=== PATIENT | female | born 1950 | race Caucasian/White ===

== ENCOUNTER 2019-02-16 04:53 | Inpatient (IN) ==
--- NOTE | 2019-01-14 08:49 | PAT Medication Instructions ---
Medication Instructions Date of Service January 14, 2019 Home Medications aspirin [Aspirin Low Dose] 81 mg PO QDD calcium carbonate-vitamin D3 [Calcium 600 + D(3)] 1 cap PO QDD cholecalciferol (vitamin D3) [Vitamin D3] 1,000 unit PO QAM hydrochlorothiazide 25 mg PO QAM potassium chloride 10 meq PO QAM vitamin B complex 1 tab PO QAM ASK your prescriber and surgeon aspirin [Aspirin Low Dose] 81 mg PO QDD DO NOT take the morning of surgery cholecalciferol (vitamin D3) [Vitamin D3] 1,000 unit PO QAM hydrochlorothiazide 25 mg PO QAM potassium chloride 10 meq PO QAM vitamin B complex 1 tab PO QAM Take evening before surgery calcium carbonate-vitamin D3 [Calcium 600 + D(3)] 1 cap PO QDD Other Notes If you have any questions please call us at [phone] or [phone] or [phone] or [phone]
--- NOTE | 2019-01-14 11:32 | Anesthesiology Consultation ---
Date of Service January 14, 2019 Assessment & Plan (1) Encounter for pre-operative examination: - PCP: 01/21/19: "Patient appears in good health with no contraindications to surgery. I am still waiting for the results of her pre-operative testing from [facility]. Pending these results, she appears optimized for her upcoming procedure." Preop testing received/reviewed by PCP. In regards to hypokalemia on preop testing, patient already on KCl 10meq daily- patient admits she does not take it every day. Compliance recommended and repeat BMP recommended prior to surgery (plan to be done week of 01/31 at [facility]). - ASA: okay to continue perioperatively per surgeon Chart Review Chart Review: Acceptable Risk for Surgery (pending repeat BMP) and Patient seen in Pre Admission Testing Teaching & Discussion Pre-Anesthesia Teaching/Discussion Notes: Instructed NPO after midnight before surgery,except medications with 15 cc of water. Medication instructions provided according to the PAT guidelines. History Surgery Operation Date: 02/16/19 07:00 Proposed Procedures p Right Total Knee Arthroplasty - Hernan Ray MD Height/Weight Height: 5 ft 1 in Weight: 88 kg Allergies Allergy/AdvReac Type Severity Reaction Status Date / Time No Known Allergies Allergy Verified 01/10/19 11:10 Medications Home Medications Medication Instructions Recorded Confirmed Last Taken aspirin [Aspirin Low Dose] 81 mg PO QDD 01/10/19 01/10/19 Unknown calcium carbonate-vitamin D3 1 cap PO QDD 01/10/19 01/10/19 Unknown [Calcium 600 + D(3)] cholecalciferol (vitamin D3) 1,000 unit PO QAM 01/10/19 01/10/19 Unknown [Vitamin D3] hydrochlorothiazide 25 mg PO QAM 01/10/19 01/10/19 Unknown potassium chloride 10 meq PO QAM 01/10/19 01/10/19 Unknown vitamin B complex 1 tab PO QAM 01/10/19 01/10/19 Unknown Past Medical History Medical History Hypertension Obesity Osteoarthritis Post traumatic stress disorder no recent issues Exercise / Class Metabolic Activity II 4-5 Yardwork/Stairs/Walk up hill Past Family History Family History Grandfather (Paternal) No problems noted. Grandmother (Maternal) Family history of diabetes mellitus Past Surgical History Surgical History History of carpal tunnel surgery of right wrist History of colonoscopy Hx of shoulder surgery RIGHT Hx of tonsillectomy Hx of total hysterectomy Past Anesthesia History No Hx of Anesthesia Complications and No Family Hx of Anesthesia Complications History of PONV No Hx of PONV and No Hx of Motion Sickness Social History Smoking Status: Never smoker Do You Dip or Chew Tobacco: No Hx Alcohol Use: Yes alcohol intake frequency: holidays/special occasions only Hx Substance Use: No Review of Systems Patient denies chest pain, shortness of breath, dyspnea on exertion, cough, wheezing, palpitations. Physical Exam Vital Signs VITALS BP 115/72 P 76 TEMP 98.0 SP02 94%RA RESP 18 PHYSICAL Full neck and c-spine range of motion. Full TMJ range of motion. TMD 3 finger breaths Mallampati Score 2 Dentition: intact Lungs: clear throughout to auscultation Cardiac: regular rate and rhythm, no murmurs noted Spine: normal Carotid arteries: negative bruit Extremities: no edema Testing Laboratory Results 01/14/19 11:46 01/14/19 11:46 PT 10.0 Seconds (9.0-12.0) 01/14/19 11:46 INR 1.0 (0.9-1.1) 01/14/19 11:46 APTT 24.9 Seconds (21.0-31.0) 01/14/19 11:46 Hemoglobin A1c 5.5 % (4.5-5.6) 01/14/19 11:46 Urine Color Dark Yellow 01/14/19 11:46 Urine Appearance Clear (Clear) 01/14/19 11:46 Urine pH 5.0 (4.5-7.5) 01/14/19 11:46 Ur Specific [place] 1.031 (1.000-1.030) H 01/14/19 11:46 Urine Protein Negative (Negative) 01/14/19 11:46 Urine Glucose (UA) Negative (Negative) 01/14/19 11:46 Urine Ketones 1+ (Negative) H 01/14/19 11:46 Urine Nitrite Negative (Negative) 01/14/19 11:46 Ur Leukocyte Esterase 1+ (Negative) H 01/14/19 11:46 Urine WBC (Auto) 1-5 /hpf (0-5) 01/14/19 11:46 Urine RBC (Auto) 5-10 /hpf (0-4) H 01/14/19 11:46 U Hyaline Cast (Auto) 1-5 /lpf (0-5) 01/14/19 11:46 U Epithel Cells (Auto) >30 /lpf (0-5) H 01/14/19 11:46 Urine Bacteria (Auto) Negative (Negative) 01/14/19 11:46 Blood Type O Positive 01/14/19 11:46 Antibody Screen NEGATIVE 01/14/19 11:46 Electrocardiogram Date: 01/14/19 NSR at 75bpm. NS ST/TWA. Chest X-Ray Date: 01/14/19 Cardiac silhouette is mildly enlarged. Eventration of the right hemidiaphragm. Minimal subsegmental bibasilar opacities suggest atelectasis. Multiple healed r emote right-sided rib fractures. Loose body of the left subscapularis recess. No acute process.
--- NOTE | 2019-01-14 12:28 | XRay Report ---
XR chest Pre-admission PA/Lat HISTORY: 68 years-old Female pat preoperative exam. No acute chest complaints COMPARISON: None available TECHNIQUE: PA and lateral views of the chest. FINDINGS: Cardiac silhouette is mildly enlarged. No pneumothorax, pleural effusion or overt pulmonary edema. Ev entration of the right hemidiaphragm. Minimal subsegmental bibasilar opacities suggest atelectasis. M ultiple healed remote right-sided rib fractures. Loose body of the left subscapularis recess. IMPRESSION: No acute process. The above report was generated using voice recognition software. It may contain grammatical, syntax o r spelling errors. Electronically signed by: Ian Livingston M.D. 01/14/2019 12:27 PM
[2019-01-14 13:07] LABS: Albumin Level 3.6 gm/dl (3.4-5.0); BUN Creatinine Ratio 30.3 (10-20); Calcium 9.1 mg/dl (8.5-10.1); Creatinine Clr Calc Pharmacy 66.9 ml/min; Est GFR (African American) 87.2; Est GFR (Non-African American) 75.2; Potassium 3.1 mmol/L (3.5-5.1)
[2019-01-14 13:13] LABS: Basophils # (auto) 0.04 K/uL (0-0.2); Basophils % (auto) 0.6 %; Eosinophils # (auto) 0.13 K/uL (0-0.5); Eosinophils % (auto) 1.9 %; Hematocrit (blood only) 42.6 % (37-47); Hemoglobin 14.5 g/dL (12.0-16.0); Immature Granulocytes # (auto) 0.01 K/uL (0.00-0.02); Immature Granulocytes % (auto) 0.1 %; Lymphocytes # (auto) 2.04 K/uL (1.2-3.4); Lymphocytes % (auto) 30.1 %; Mean Corpuscular Volume 97.5 fL (80-100); Mean Platelet Volume 11.8 fL (7.4-10.4); Monocytes # (auto) 0.47 K/uL (0.11-0.59); Monocytes % (auto) 6.9 %; Neutrophils # (auto) 4.08 K/uL (1.4-6.5); Neutrophils % (auto) 60.4 %; Platelet Count 221 K/uL (130-400); RDW Coefficient of Variation 13.3 % (11.5-14.5); RDW Standard Deviation 47.1 fL (36.4-46.3); Red Blood Count 4.37 M/uL (4.2-5.4); White Blood Count 6.77 K/uL (4.8-10.8)
[2019-01-14 13:24] LABS: Partial Thromboplastin Ratio 0.9; Partial Thromboplastin Time 24.9 Seconds (21.0-31.0)
[2019-01-14 13:32] LABS: Estimated Average Glucose 111 mg/dl; Hemoglobin A1C 5.5 % (4.5-5.6)
[2019-01-14 13:41] LABS: Appearance Urine Clear (Clear); Bacteria Urine Automated Negative (Negative); Bilirubin Urine Negative (Negative); Blood Urine Negative (Negative); Color Urine Dark Yellow; Epithelial Cell Urine Auto >30 /lpf (0-5); Glucose Urine UA Negative (Negative); Ketones Urine 1+ (Negative); Leukocyte Esterase Urine 1+ (Negative); Nitrite Urine Negative (Negative); Protein Urine Negative (Negative); Specific Gravity Urine 1.031 (1.000-1.030); Urobilinogen Urine Negative (Negative)
--- NOTE | 2019-02-15 21:57 | History and Physical Report ---
DATE OF ADMISSION: 02/16/2019 CHIEF COMPLAINT: Chronic right knee pain. HISTORY OF PRESENT ILLNESS: This is a 68-year-old female patient of Dr. Ray'sheri complaining of chronic right knee pain, longstanding, now progressively getting worse. The patient has failed conservative treatment including acetaminophen, anti-inflammatories, home exercise program and the use of a wrap. The patient has been diagnosed with end-stage osteoarthritis per clinical and radiographic exams. The patient has increased pain with weightbearing activities and her pain does interfere with her activities of daily living. The patient wished to proceed with a right total knee arthroplasty. PAST MEDICAL HISTORY: Hypertension, anxiety, osteoarthritis, neck problems, and obesity. SOCIAL HISTORY: Nonsmoker, nondrinker. PAST SURGICAL HISTORY: Right shoulder, hysterectomy, tonsillectomy and right shoulder rotator cuff repair. FAMILY HISTORY: Noncontributory. REVIEW OF SYSTEMS: Chronic right knee pain and instability. Otherwise, denies any shortness of breath, chest pain, nausea, vomiting or any other joint complaints. MEDICATIONS: 1. Calcium 600 plus D daily. 2. Hydrochlorothiazide 25 mg daily. 3. Potassium 10 mEq 2 capsules daily. 4. Vitamin D3 1000 units daily. 5. Aspirin 81 mg daily. 6. Multivitamin daily. ALLERGIES: No known drug allergies. PHYSICAL EXAMINATION: GENERAL: Well-developed, well-nourished 68-year-old female in no acute distress. She is alert and oriented x3 and pleasant. HEENT: Normocephalic, atraumatic. Extraocular motions are intact. Pupils are equal and reactive to light. HEART: Regular rate and rhythm, no murmurs. LUNGS: Clear. ABDOMEN: Soft, nontender, bowel sounds present. EXTREMITIES: Right knee valgus deformity with medial joint line tenderness. She has a mild effusion. Limited range of motion of 0-125. NEUROLOGIC: Neurovascularly intact in her right lower extremity. She has 5/5 strength with pain in her right lower extremity. DIAGNOSES: Right knee end-stage osteoarthritis with a history of hypertension, anxiety, neck problems, and obesity. PLAN: The patient was advised of her diagnosis. Indications, risks, benefits, postop course have all been reviewed. The patient wished to proceed with a right total knee arthroplasty. Necessary consent forms, preoperative testing and clearances will be obtained.
[2019-02-16] MEDS ORDERED: CeleBREX 200 MG CAP PO SCH (06:00)
[2019-02-16] MEDS ORDERED: METOCLOPRAMIDE HCL 10 MG TABLET PO SCH (06:00)
[2019-02-16] MEDS ORDERED: FAMOTIDINE 20 MG TAB PO SCH (06:00)
[2019-02-16] MEDS ORDERED: TRANEXAMIC ACID 1,000 MG **IV Pre-op IV SCH (06:00)
[2019-02-16] MEDS ORDERED: LR 500ML BOLUS, THEN 15ML/HR IV SCH (06:00)
[2019-02-16] MEDS ORDERED: dexAMETHasone 4 MG TAB PO SCH (06:00)
[2019-02-16] MEDS ORDERED: GABAPENTIN 300 MG CAP PO SCH (06:00)
[2019-02-16] MEDS ORDERED: ROPIVACAINE 0.5% HCL/PF 150 MG, BUPIVACAINE 0.5% MPF 30 ML, EPINEPHrine 30MG/30ML (OR U... INSTIL SCH (06:00)
[2019-02-16] MEDS ORDERED: CEFAZOLIN 2000MG 2,000 MG/15 ML SYR IV SCH (06:00)
[2019-02-16] MEDS ORDERED: ACETAMINOPHEN 500 MG TAB PO SCH (06:00)
[2019-02-16] MEDS ORDERED: ROPIVACAINE 0.5% 5 MG/ML 30 ML VIAL ONE (06:14)
[2019-02-16] MEDS ORDERED: EPINEPHrine INJ 1 MG/ML AMP ONE (06:14)
[2019-02-16] MEDS ORDERED: BUPIVACAINE 0.5 % 5 MG/1 ML PF 10ML VIAL ONE (06:15)
[2019-02-16] MEDS ORDERED: ORTHO JOINT ANESTHETIC ONE (06:26)
[2019-02-16] MEDS ORDERED: BACITRACIN INJ 50,000 UNIT VIAL ONE (06:26)
[2019-02-16] MEDS ORDERED: TRANEXAMIC ACID 1,000 MG **IV Intra-op IV SCH (06:30)
[2019-02-16] MEDS ORDERED: MIDAZOLAM HCL 1 MG/ML 2ML VIAL ONE (06:34)
[2019-02-16] MEDS ORDERED: KETAMINE HCL INJ 50 MG/ML 10 ML VIAL ONE (06:35)
[2019-02-16] MEDS ORDERED: fentaNYL citrate 100 MCG/2 ML VIAL ONE (06:42)
--- NOTE | 2019-02-16 06:45 | History & Physical Bridge Note ---
Date of Service February 16, 2019 History & Physical Bridge Note I have examined the patient, reviewed the History & Physical and in the interval since the performance of the History & Physical I have noted the following changes of clinical significance: no changes noted
[2019-02-16] MEDS ORDERED: DEXAMETHASONE SOD INJ 4 MG/ML VIAL ONE (07:33)
[2019-02-16] MEDS ORDERED: GLYCOPYRROLATE 0.2 MG/ML VIAL ONE (07:33)
[2019-02-16] MEDS ORDERED: LIDOCAINE HCL 2% 2 ML VIAL/AMP(20MG/ML) INFIL ONE (07:33)
[2019-02-16] MEDS ORDERED: ONDANSETRON INJ 2 MG/ML 2 ML VIAL ONE (07:33)
[2019-02-16] MEDS ORDERED: PROPOFOL IV EMULSION 10 MG/ML 20 ML VIAL IV ONE (07:33)
[2019-02-16] MEDS ORDERED: SODIUM CHLORIDE 0.9% INJ 10 ML VIAL ONE (07:41)
[2019-02-16] MEDS ORDERED: HYDROmorphone INJ 2 MG/ML SYR/VIAL ONE (07:42)
--- NOTE | 2019-02-16 08:47 | Operative Report ---
Post Operative Report Pre & Post Diagnosis Operation Date: 02/16/19 07:00 Pre-Op Diagnosis: RIGHT KNEE OSTEOARTHRITIS Post-Op Diagnosis: RIGHT KNEE OSTEOARTHRITIS Procedure Operation Date: 02/16/19 07:00 Actual Procedures p Right Total Knee Arthroplasty(Right) - Hernan Ray MD Surgeon Hernan Ray MD Clinical Lab Technologist Isaias ZENG Estimated Blood Loss 5 Findings Consistent with Post-Op Diagnosis Specimens Bone cuts Drains 2 Hemovac Anesthesia Type General Regional Complications none Disposition Accompanied Patient To Recovery: No Disposition: Recovery Room Indications 68-year-old female with chronic bilateral knee pain with significant pain and instability right knee with a valgus knee [id number] lateral compartment with bone loss. Description of Procedure The patient was taken to the operating room and anesthetized under general with regional block. Patient was placed supine on the the operating table. A pneum atic tourniquet was placed about the right obese upper thigh. The knee exam demonstrated significant instability some knee hyperextension with collapse of the lateral compartment with valgus stress and some MCL laxity good range of motion. The involved leg was elevated exsanguinated with Esmarch bandage and the pneumatic tourniquet was raised to 350 millimeters mercury. A longitudinal incision was made across the anterior knee. Skin flaps were elevated. An incision was made into the medial retinaculum and extended up into the mid third of the quadriceps tendon and extended down to the tibial tubercle. Intra- articular findings demonstrated tricompartmental DJD [id number] in the lateral compartment with bone loss tibial plateau and flexion surface femoral condyle. There is a chronic lateral meniscus tear with displaced fragments. She also had grade III chondromalacia lateral compartment and patellofemoral joint. The knee was exposed by excising cruciate ligaments and menisci. The infrapatellar fat pad was resected. The fat pad over the anterior femur at the upper aspect of the articular surface was resected for placement of the component in that area. A subperiosteal peel lateral release was performed around the patella. The [employer] journey 2.0 total knee arthroplasty system was utilized for the procedure. The custom femoral cutting guide was pinned in position. The distal femoral cut was made. The size 4, 5 in 1 cutting block was placed. The anterior posterior and chamfer cuts were made. The knee was extended and a free hand cut technique was performed to the patella. The patella with was measured and the width was reproduced using a 32 symmetrical patella component. 3 drill holes are made for the patella component pegs. Flexion extension gaps were balanced. This required releasing the lateral posterior lateral capsule and the IT band on the lateral tibia. The tibia was then subluxed. The custom tibial cutting block was pinned in position and the proximal tibial cut was made with the oscillating saw. The size 2 tibial trial was externally rotated in line with the tibial tubercle and pinned in position. The punch for the stem was used. The femoral trial was inserted and centered the notch cutting devices were used and the collet was placed. Tibial trials were used for the insert. The size 13 trial gave balanced ligaments through full range of motion. Patella tracking was assessed with range of motion. The patella tracked with some lateral tracking so I did a formal lateral release and the patella tracked centrally. The trials were removed. The Orthomix anesthetic cocktail was injected per protocol. The cut bone surfaces and soft tissue were copiously irrigated with antibiotic solution with bacitracin. The final components were cemented with Simplex cement. The final components were [employer] journey 2.0 right posterior stabilized femoral component, 2 primary tibial baseplate, 13 high flex polyethylene posterior stabilized tibial insert, 32 symmetrical patella. While the cement cured the Betadine soak was used per protocol. When the cement cured the knee was copiously irrigated with pulsatile lavage antibiotic solution with bacitracin. 2 drains were brought out laterally connected to Hemovac. The quadriceps tendon and medial retinaculum were closed with interrupted [id number] #1 Vicryl sutures. The knee was taken through full range of motion and repair was secure. The subcutaneous tissues were closed with 2-0 Vicryl sutures. The skin was closed with abi. A Bee superficial wound VAC was applied. The tourniquet was let down and the patient had good capillary refill to the extremity. The patient tolerated the procedure well. My physician physiotherapy assistant [] assisted in the procedure including prepping draping leg positioning soft tissue retraction instrument management and assisted in the closure ,dressings application and will participate in postoperative care the patient. I attest to the content of the Intraoperative Record and any orders documented therein. Any exceptions are noted below.
[2019-02-16] MEDS ORDERED: ePHEDrine sulfate 50 MG/ML AMP IV PRN (08:52)
[2019-02-16] MEDS ORDERED: ATROPINE SULFATE 0.1 MG/ML 10ML SYR IV PRN (08:52)
[2019-02-16] MEDS ORDERED: ONDANSETRON INJ 2 MG/ML 2 ML VIAL IV PRN ×2 (08:52→10:26)
[2019-02-16] MEDS ORDERED: PROMETHAZINE HCL 12.5 MG in SODIUM CHLORIDE 0.9% 50 ML IV PRN (08:52)
[2019-02-16] MEDS ORDERED: LABETALOL HCL IV 5 MG/ML 20ML IV PRN (08:52)
[2019-02-16] MEDS ORDERED: HYDROmorphone INJ 1 MG/ML SYRINGE IV PRN (08:52)
[2019-02-16] MEDS ORDERED: FLUMAZENIL 0.1 MG/1 ML 10 ML VIAL IV PRN (08:52)
[2019-02-16] MEDS ORDERED: NALOXONE HCL 0.4 MG/1 ML VIAL/CARP IV PRN ×2 (08:52→10:26)
--- NOTE | 2019-02-16 09:37 | XRay Report ---
RIGHT KNEE 2 VIEWS History: Right total knee arthroplasty. Degenerative arthritis. Postop. FINDINGS: The patient is status post a right total knee arthroplasty. The hardware is intact. No frac ture or dislocation. Skin abi and surgical drains are in place. IMPRESSION: Right total knee arthroplasty. No evidence for hardware complication. Electronically signed by: Elian Odell M.D. 02/16/2019 9:36 AM
--- NOTE | 2019-02-16 10:09 | Anesthesiology Progress Note ---
Date of Service February 16, 2019 Anesthesia Post Procedure Vital Signs Vital Signs: Temp Pulse Pulse Resp BP Pulse Ox 02/16/19 10:00 84 14 133/71 95 02/16/19 09:50 36.5 C 86 16 133/75 95 02/16/19 09:40 88 17 135/72 95 02/16/19 09:30 93 H 13 126/69 95 02/16/19 09:20 98 H 13 125/67 93 02/16/19 09:14 36.9 C 100 H 12 144/67 H 94 02/16/19 05:50 36.5 C 63 18 156/95 H 94 Transfer of Care Handoff Completed per policy Notes Mental Status: alert / awake / arousable Patient Amnestic to Procedure: Yes Nausea / Vomiting: adequately controlled Pain: adequately controlled Airway Patency, RR, SpO2: stable & adequate BP & HR: stable & adequate Hydration State: stable & adequate Anesthetic Complications: no major complications apparent
[2019-02-16] MEDS ORDERED: BISACODYL 10 MG SUPP PR PRN (10:26)
[2019-02-16] MEDS ORDERED: SODIUM CHLORIDE 0.9% 1000ML 1,000 ML IV SCH (10:26)
[2019-02-16] MEDS ORDERED: MAGNESIUM HYDROXIDE SUSP 30 ML UDC PO PRN (10:26)
[2019-02-16] MEDS ORDERED: HYDROmorphone INJ 0.5 MG/0.5 ML SYR IV PRN (10:26)
--- NOTE | 2019-02-16 11:03 | Consultation ---
Date of Consultation February 16, 2019 Assessment & Plan (1) S/P total knee arthroplasty: Post op day# 0 S/P R TKA by Dr Ray EB#5ml -pain management per ortho -wound management per ortho -PT/OT as appropriate -DVT prophylaxis per ortho -incentive spirometry -monitor H&H for acute blood loss anemia; pre-op Hgb: 14.5 (2) Hypertension: Stable -Resume HCTZ, potassium supplement tomorrow (3) Obesity: -Lifestyle modifications recommended DVT Prophylaxis -SCDs, Xarelto per ortho Disposition per primary service Follows with Jolanta ANTHONY for routine care Pt was seen and care coordinated with Dr Chau. See addendum Pt will be followed by Dr Moran starting 02/17/19 Thank you for this consultation. We will follow the patient with you during their hospital stay. You can reach a member of the [facility] Hospitalist Team 26/01 via pager @ [phone]. Supervising Physician Co-Signing Physician Notes Attending addendum: Patient was seen and examined in medical floor Is a status post right TKA and doing fine following surgery Denies any significant symptoms On examination Lying in bed comfortably Hemodynamically stable Chest-clear to auscultate bilaterally Heart-S1-S2, regular Abdomen-benign Extremities- negative for any edema Labs and imaging studies reviewed Medically stable Agree with assessment and plan as outlined above by RADHA Brown DR History of Present Illness Reason for Consultation: Postop medical management Attending Physician: Hernan Ray MD History of Present Illness Patient is 68-year-old F with PMH HTN, HLD, obesity seen in medical consultation postop medical management S/P R TKA today by Dr. Dennis. Postop patient reports feeling okay, still tired from anesthesia. Not having any extremity pain yet, leg still numb. Has not urinated yet since procedure. Denies fever/chills, diaphoresis, N/V, DRAPER, dizziness, CP, SOB, palpitations, cough, sore throat, choking, abdominal pain, extremity edema, rashes. Allergies Allergy/AdvReac Type Severity Reaction Status Date / Time No Known Allergies Allergy Verified 02/16/19 05:36 Home Medications Home Medications Medication Instructions Recorded Confirmed Type aspirin [Aspirin Low Dose] 81 mg PO QDD 01/10/19 02/16/19 History calcium carbonate-vitamin D3 1 cap PO QDD 01/10/19 02/16/19 History [Calcium 600 + D(3)] cholecalciferol (vitamin D3) 1,000 unit PO QAM 01/10/19 02/16/19 History [Vitamin D3] hydrochlorothiazide 25 mg PO QAM 01/10/19 02/16/19 History potassium chloride 10 meq PO QAM 01/10/19 02/16/19 History vitamin B complex 1 tab PO QAM 01/10/19 02/16/19 History Patient History Medical History Obesity (Chronic) Hypertension (Chronic) Post traumatic stress disorder (Chronic) no recent issues Osteoarthritis (Chronic) Surgical History History of colonoscopy (Chronic) Hx of total hysterectomy (Chronic) Hx of shoulder surgery (Chronic) RIGHT Hx of tonsillectomy (Chronic) History of carpal tunnel surgery of right wrist (Chronic) Family History Grandfather (Paternal) No problems noted. Grandmother (Maternal) Family history of diabetes mellitus Social History Preferred Language: Irish Communication Ability: Effective Beliefs That Will Affect Care: None Current Living Situation: Spouse Feels Safe at Home: Yes Safety Concerns: Feels Safe At This Time Smoking Status: Never smoker Do You Dip or Chew Tobacco: No ; Second Hand Exposure: No ; Hx Alcohol Use: Yes Hx Substance Use: No Review of Systems Review of Systems: All systems reviewed & are unremarkable except as noted in HPI & below Physical Exam Physical Exam: General: no acute distress, obese Head: normocephalic, atraumatic Eyes: conjunctiva non-injected, anicteric ENT: normal inspection external ears, nose, mucous membranes moist Neck: supple, trachea midline Lungs: clear, no respiratory distress, no wheezing/rhonchi/rales CV: RRR, no murmur, no pretibial edema Abd: normal BS, soft, non-tender Ext: no calf tenderness; RLE with dressing and anthony wrap in place, SCDs in place, pedal pushes and pulls intact bilaterally, sensation to light touch intact BLE, distal pulses intact BLE Neuro: Alert but sleepy & Oriented x 3, no focal deficits noted, normal affect Skin: warm, dry Results & Data Vital Signs (Past 12 Hours) Vital Signs Temp Pulse Pulse Resp BP Pulse Ox 02/16/19 10:42 36.5 C 79 18 130/78 97 02/16/19 10:00 84 14 133/71 95 02/16/19 09:50 36.5 C 86 16 133/75 95 02/16/19 09:40 88 17 135/72 95 02/16/19 09:30 93 H 13 126/69 95 02/16/19 09:20 98 H 13 125/67 93 02/16/19 09:14 36.9 C 100 H 12 144/67 H 94 02/16/19 05:50 36.5 C 63 18 156/95 H 94
[2019-02-16] MEDS ORDERED: PNEUMOCOCCAL POLYSACCHARIDES 25 MCG/0.5 ML VIAL/SYR IM ONE (14:00)
[2019-02-16] MEDS ORDERED: PNEUMOCOCCAL ADMINISTRATION CHARGE ONE (14:00)
[2019-02-16] MEDS: CEFAZOLIN 2000MG 2,000 MG/15 ML SYR IV SCH ×2 (14:11→22:38)
[2019-02-16] MEDS: ACETAMINOPHEN 500 MG TAB PO SCH ×2 (14:11→22:38)
[2019-02-16] MEDS: CALCIUM 600MG + VIT D 400 IU TAB PO SCH (17:41)
[2019-02-16] MEDS: DOCUSATE SODIUM 100 MG CAP PO SCH (20:20)
[2019-02-16] MEDS: CeleBREX 200 MG CAP PO SCH (20:20)
[2019-02-16] MEDS: SENNA 8.6 MG TAB PO SCH (20:21)
[2019-02-17] MEDS: ACETAMINOPHEN 500 MG TAB PO SCH ×3 (06:01→21:42)
--- NOTE | 2019-02-17 08:13 | Orthopedic Progress Note ---
Date of Service February 17, 2019 Assessment & Plan (1) S/P total knee arthroplasty: POD #1, Right TKA PT/ OT DVT proph- Xarelto D/C planning- Home w HH As per medicine. Subjective POD #1. Doing well, denies SOB, CP, N/V. Pain controlled well. Would like HH Physical Exam Physical Exam: Right knee dressings c/d/i, no drainage. Drain in tact. Toes/ ankle mobile. No calf tenderness. A&Ox3. Results & Data Vital Signs (Past 12 Hours) Vital Signs Temp Pulse Resp BP Pulse Ox 02/17/19 06:50 36.5 C 54 L 18 119/74 94 02/17/19 03:19 36.6 C 61 16 104/66 93 02/16/19 23:30 36.6 C 60 16 115/69 95 02/16/19 20:23 36.7 C 65 16 121/72 94
[2019-02-17] MEDS: OXYCODONE HCL IR 5 MG TAB (IMMEDIATE RELEASE) PO PRN ×2 (08:15→20:41)
[2019-02-17] MEDS: CeleBREX 200 MG CAP PO SCH ×2 (08:18→20:37)
[2019-02-17] MEDS: CHOLECALCIFEROL 1,000 UNITS TAB PO SCH (08:18)
[2019-02-17] MEDS: MULTIVITAMIN TAB PO SCH (08:18)
[2019-02-17] MEDS: VITAMIN B COMPLEX TAB PO SCH (08:19)
[2019-02-17] MEDS: POTASSIUM CHLORIDE 10 MEQ TABCR PO SCH (08:19)
[2019-02-17] MEDS: DOCUSATE SODIUM 100 MG CAP PO SCH ×2 (08:20→20:37)
[2019-02-17] MEDS: RIVAROXABAN 10 MG TABLET PO SCH (08:20)
[2019-02-17] MEDS: hydroCHLOROthiazide 25 MG TAB PO SCH (08:25)
--- NOTE | 2019-02-17 08:28 | Consultation ---
Date of Consultation February 17, 2019 Assessment & Plan (1) S/P total knee arthroplasty: Post op day# 0 S/P R TKA by Dr Ray EB#5ml -pain management per ortho -wound management per ortho -PT/OT as appropriate -DVT prophylaxis per ortho -incentive spirometry -monitor H&H for acute blood loss anemia; pre-op Hgb: 14.5 (2) Hypertension: Stable -Resume HCTZ, potassium supplement tomorrow (3) Obesity: -Lifestyle modifications recommended DVT Prophylaxis -SCDs, Xarelto per ortho Disposition per primary service Follows with Jolanta ANTHONY for routine care Pt was seen and care coordinated with Dr Chau. See addendum Pt will be followed by Dr Moran starting 02/17/19 Thank you for this consultation. We will follow the patient with you during their hospital stay. You can reach a member of the [facility] Hospitalist Team 26/01 via pager @ [phone]. History of Present Illness Attending Physician: Hernan Ray MD Allergies Allergy/AdvReac Type Severity Reaction Status Date / Time No Known Allergies Allergy Verified 02/16/19 05:36 Home Medications Home Medications Medication Instructions Recorded Confirmed Type aspirin [Aspirin Low Dose] 81 mg PO QDD 01/10/19 02/16/19 History calcium carbonate-vitamin D3 1 cap PO QDD 01/10/19 02/16/19 History [Calcium 600 + D(3)] cholecalciferol (vitamin D3) 1,000 unit PO QAM 01/10/19 02/16/19 History [Vitamin D3] hydrochlorothiazide 25 mg PO QAM 01/10/19 02/16/19 History potassium chloride 10 meq PO QAM 01/10/19 02/16/19 History vitamin B complex 1 tab PO QAM 01/10/19 02/16/19 History Patient History Medical History Obesity (Chronic) Hypertension (Chronic) Post traumatic stress disorder (Chronic) no recent issues Osteoarthritis (Chronic) Surgical History History of colonoscopy (Chronic) Hx of total hysterectomy (Chronic) Hx of shoulder surgery (Chronic) RIGHT Hx of tonsillectomy (Chronic) History of carpal tunnel surgery of right wrist (Chronic) Family History Grandfather (Paternal) No problems noted. Grandmother (Maternal) Family history of diabetes mellitus Social History Preferred Language: [place] Communication Ability: Effective Beliefs That Will Affect Care: None Current Living Situation: Spouse Feels Safe at Home: Yes Safety Concerns: Feels Safe At This Time Smoking Status: Never smoker Do You Dip or Chew Tobacco: No ; Second Hand Exposure: No ; Hx Alcohol Use: Yes Hx Substance Use: No Results & Data Vital Signs (Past 12 Hours) Vital Signs Temp Pulse Resp BP Pulse Ox 02/17/19 08:23 62 148/90 H 02/17/19 06:50 36.5 C 54 L 18 119/74 94 02/17/19 03:19 36.6 C 61 16 104/66 93 02/16/19 23:30 36.6 C 60 16 115/69 95
[2019-02-17 08:31] LABS: Hematocrit (blood only) 35.9 % (37-47); Hemoglobin 12.3 g/dL (12.0-16.0); Mean Corpuscular Hgb Conc 34.3 g/dL (32-36); Mean Corpuscular Volume 94.7 fL (80-100); Mean Platelet Volume 10.7 fL (7.4-10.4); Platelet Count 191 K/uL (130-400); RDW Standard Deviation 48.1 fL (36.4-46.3); Red Blood Count 3.79 M/uL (4.2-5.4); White Blood Count 10.84 K/uL (4.8-10.8)
--- NOTE | 2019-02-17 08:38 | Hospitalist Progress Note ---
Date of Service February 17, 2019 Assessment & Plan (1) S/P total knee arthroplasty: Post op day# 1 S/P R TKA by Dr Ray EBL#5ml; Total Hemovac output 225ml Post op pt reports pain controlled -pain management per ortho -wound management per ortho -PT/OT as appropriate -DVT prophylaxis per ortho -incentive spirometry -bowel regimen -H/H: 12.3/35.9, pre-op Hgb: 14.5 (2) Hypertension: Stable -Resume HCTZ, potassium supplement (3) Obesity: -Lifestyle modifications recommended DVT Prophylaxis -SCDs, Xarelto per ortho Disposition per primary service, pt considering home health Follows with Jolanta ANTHONY for routine care Pt was seen and care coordinated with Dr Moran. See addendum Supervising Physician Co-Signing Physician Notes Patient is seen and examined at bedside. Patient is status post right total knee arthroplasty postop Day #1. Patient is doing well postop. Pain is controlled. Denies any chest pain, shortness of breath, nausea, abdominal pain. Offers no complaints. On exam patient is moderately built and nourished, no apparent distress, normocephalic atraumatic, lungs are clear to auscultation, S1-S2, no murmur, abdomen soft nontender, extremities--right knee surgical site in dressing,+ drain, complete neuro exam not performed, grossly no focal neurological deficits. Monitor for postop anemia. Continue bowel regimen to prevent constipation. Activity, wound care, DVT prophylaxis as per primary team. Blood pressure stable. I personally reviewed the record. Patient is interviewed and examined at bedside. Patient's care is coordinated with Lindy Adams. Please refer to the documentation above for details of patient's presentation and for discussion of other issues. Subjective Pt seen and examined sitting in bedside exam Pt reports doing well. Pain is controlled with current pain med regimen. No BM yet. Urinating without difficulty. Yesterday reports some nausea which resolved in the evening and has been eating and drinking well. No vomiting. Denies fever/chills, DRAPER, dizziness, CP, SOB,cough, abdominal pain, paresthesias, extremity edema, rashes, urinary symptoms. Review of Systems Review of Systems: All systems reviewed & are unremarkable except as noted in HPI & below Physical Exam Physical Exam: General: no acute distress, obese Head: normocephalic, atraumatic Eyes:conjunctiva non-injected, anicteric ENT: normal inspection external ears, nose, mucous membranes moist Neck: supple, trachea midline Lungs: clear, no respiratory distress, no wheezing/rhonchi/rales CV: RRR, no murmur, no pretibial edema Abd: normal BS, soft, non-tender Ext: no calf tenderness; RLE: anthony wrap and dressing in place and is dry, hemovac in place, pt able to extend and flex knee, distal pulses intact bilaterally Neuro: A&O x 3, no focal deficits noted, normal affect Skin: warm, dry Results & Data Vital Signs (Past 12 Hours) Vital Signs Temp Pulse Resp BP Pulse Ox 02/17/19 08:23 62 148/90 H 02/17/19 06:50 36.5 C 54 L 18 119/74 94 02/17/19 03:19 36.6 C 61 16 104/66 93 02/16/19 23:30 36.6 C 60 16 115/69 95 Laboratory Results Short CBC 01/14/19 02/17/19 02/17/19 Range/Units 11:46 08:18 08:18 WBC 10.84 H (4.8-10.8) K/uL Hgb 12.3 (12.0-16.0) g/dL Hct 35.9 L (37-47) % Plt Count 191 (130-400) K/uL Creatinine 0.80 0.91 (0.6-1.2) mg/dl Glucose 122 H 110 H (70-99) mg/dl BMP 02/17/19 08:18 Sodium 139 Potassium 3.5 Chloride 105 Carbon Dioxide 27 BUN 21 H Creatinine 0.91 Glucose 110 H Calcium 8.8
[2019-02-17 08:47] LABS: BUN Creatinine Ratio 22.5 (10-20); Calcium 8.8 mg/dl (8.5-10.1); Creatinine Clr Calc Pharmacy 59.2 ml/min; Est GFR (African American) 74.6; Est GFR (Non-African American) 64.4; Potassium 3.5 mmol/L (3.5-5.1)
[2019-02-17] MEDS: CALCIUM 600MG + VIT D 400 IU TAB PO SCH (15:43)
[2019-02-17] MEDS: SENNA 8.6 MG TAB PO SCH (20:37)
[2019-02-18] MEDS: OXYCODONE HCL IR 5 MG TAB (IMMEDIATE RELEASE) PO PRN ×3 (00:59→12:37)
[2019-02-18] MEDS: ACETAMINOPHEN 500 MG TAB PO SCH (05:37)
[2019-02-18 05:57] LABS: Hematocrit (blood only) 33.5 % (37-47); Hemoglobin 11.4 g/dL (12.0-16.0); Mean Corpuscular Volume 95.7 fL (80-100); Mean Platelet Volume 10.6 fL (7.4-10.4); Platelet Count 173 K/uL (130-400); RDW Coefficient of Variation 14.1 % (11.5-14.5); RDW Standard Deviation 49.2 fL (36.4-46.3)
[2019-02-18 06:27] LABS: BUN Creatinine Ratio 26.7 (10-20); Calcium 8.5 mg/dl (8.5-10.1); Creatinine Clr Calc Pharmacy 67.4 ml/min; Est GFR (African American) 87.2; Est GFR (Non-African American) 75.2; Potassium 3.9 mmol/L (3.5-5.1)
--- NOTE | 2019-02-18 07:44 | Orthopedic Progress Note ---
Date of Service February 18, 2019 Assessment & Plan (1) S/P total knee arthroplasty: POD #2, Right TKA PT/ OT DVT proph- Xarelto D/C planning- Home w HH today. As per medicine. Subjective POD #2, Doing well, denies sob, cp, n/v, pain controlled. Physical Exam Physical Exam: Right knee prevena in tact, no erythema, no calf tenderness, toes/ ankle mobile, A&Ox3. Results & Data Vital Signs (Past 12 Hours) Vital Signs Temp Pulse Resp BP BP Pulse Ox 02/18/19 07:12 36.5 C 63 18 132/81 96 02/17/19 22:38 36.9 C 60 16 115/61 94
[2019-02-18] MEDS: CeleBREX 200 MG CAP PO SCH (08:38)
[2019-02-18] MEDS: DOCUSATE SODIUM 100 MG CAP PO SCH (08:38)
[2019-02-18] MEDS: VITAMIN B COMPLEX TAB PO SCH (08:39)
[2019-02-18] MEDS: POTASSIUM CHLORIDE 10 MEQ TABCR PO SCH (08:39)
[2019-02-18] MEDS: hydroCHLOROthiazide 25 MG TAB PO SCH (08:39)
[2019-02-18] MEDS: CHOLECALCIFEROL 1,000 UNITS TAB PO SCH (08:39)
[2019-02-18] MEDS: MULTIVITAMIN TAB PO SCH (08:39)
[2019-02-18] MEDS: RIVAROXABAN 10 MG TABLET PO SCH (08:40)
--- NOTE | 2019-02-18 13:44 | Hospitalist Progress Note ---
Date of Service February 18, 2019 Assessment & Plan (1) S/P total knee arthroplasty: Post op day# 2 S/P R TKA by Dr Cory TAVAREZ#5ml; Total Hemovac output 225ml Pain is controlled Continue wound care as per Ortho PT/OT -DVT prophylaxis per ortho Continue Incentive spirometry Continue bowel regimen (2) Hypertension: Stable Continue HCTZ, potassium supplement (3) Obesity: Lifestyle modifications recommended DVT Prophylaxis Xarelto per ortho Disposition per primary service Subjective Patient is seen and examined at bedside Denies any knee pain at surgical site Doing well today Denies any chest pain, shortness of breath, dizziness, nausea, abdominal pain Plan to be discharged today Review of Systems Review of Systems: All systems reviewed & are unremarkable except as noted in HPI & below Physical Exam Physical Exam: Physical Exam: Vitals signs as noted above General Appearance:Moderately built and nourished, no apparent distress Head: normocephalic, Atraumatic Eyes: normal inspection, EOMI Neck: supple, Trachea midline Respiratory/Chest: Normal breath sounds, CTA Cardiovascular: S1, S2, No murmur Abdomen/GI:Soft, Non tender, Bowel sounds present Extremities/Musculoskelatal:normal inspection, no edema, R knee in surgical dressing Neurologic/Psych:AAOX3, grossly no focal neurological deficits Skin: normal color, warm Results & Data Vital Signs (Past 12 Hours) Vital Signs Temp Pulse Resp BP BP Pulse Ox 02/18/19 08:17 36.5 C 63 18 115/61 132/81 96 02/18/19 07:12 36.5 C 63 18 132/81 96 Laboratory Results Short CBC 02/18/19 Range/Units 05:37 WBC 7.00 (4.8-10.8) K/uL Hgb 11.4 L (12.0-16.0) g/dL Hct 33.5 L (37-47) % Plt Count 173 (130-400) K/uL BMP 02/18/19 05:37 Sodium 143 Potassium 3.9 Chloride 108 H Carbon Dioxide 30 BUN 21 H Creatinine 0.80 Glucose 89 Calcium 8.5
--- NOTE | 2019-03-02 10:30 | Discharge Summary ---
HISTORY OF PRESENT ILLNESS: This is a 68-year-old female patient of Dr. Ray'sheri complaining of chronic right knee pain, longstanding, now progressively getting worse. The patient failed conservative treatment and elected to proceed with a right total knee arthroplasty. PAST MEDICAL HISTORY: Hypertension, anxiety, osteoarthritis, neck problems and obesity. POSTOPERATIVE COURSE: The patient underwent a right total knee arthroplasty on 02/16/2019. She was followed closely with physical therapy, DVT prophylaxis in the form of Xarelto, medical consultation and pain control. The patient did very well postoperatively and was discharged home on postoperative day #2. PHYSICAL EXAMINATION: Right knee Prevena superficial wound VAC was clean, dry and intact. There was no redness or drainage. No calf tenderness. Negative Homans sign. Toes and ankle were mobile. Neurologically and neurovascularly, she is intact in her right lower extremity. DIAGNOSES: Status post right total knee arthroplasty with application of wound VAC. She has a history of hypertension, anxiety, osteoarthritis, neck problems and obesity. PLAN: The patient was discharged home with home health services. She will continue her preadmission medications with the addition of Xarelto for DVT prophylaxis and the addition of pain medications. The patient will follow up as an outpatient as scheduled.
== END 2019-02-18 13:16 | disposition home health service (06) | DRG 470 ==
LOC: ASU 04:53 → 3E 09:20

== ENCOUNTER 2020-05-09 06:55 | Inpatient (IN) ==
--- NOTE | 2020-04-05 13:32 | PAT Medication Instructions ---
Medication Instructions Date of Service April 05, 2020 Home Medications Calcium 600 + D(3) 1 cap PO QDD cholecalciferol (vitamin D3) [Vitamin D3] 1,000 unit PO QAM hydrochlorothiazide 25 mg PO QAM potassium chloride 10 meq PO QAM vitamin B complex 1 tab PO QAM acetaminophen [Tylenol] 325 mg PO QID PRN DO NOT take the morning of surgery cholecalciferol (vitamin D3) [Vitamin D3] 1,000 unit PO QAM hydrochlorothiazide 25 mg PO QAM potassium chloride 10 meq PO QAM vitamin B complex 1 tab PO QAM Take morning of surgery With a small sip of water, OTHERWISE NOTHING TO EAT OR DRINK AFTER MIDNIGHT: acetaminophen [Tylenol] 325 mg PO QID PRN (okay to take up to 4 hours prior to surgery if needed) Other Notes If you have any questions please call us at [phone] or [phone] or [phone] or [phone]
--- NOTE | 2020-04-10 12:38 | Anesthesiology Consultation ---
Date of Service April 10, 2020 Assessment & Plan (1) Encounter for pre-operative examination: - Per assessment on 04/10: Travel screen negative. No known COVID-19 positive contacts or current COVID-19 related symptoms. Surgeon arranging preop COVID t esting. Awaiting results. - S/P Right TKA: 02/16/19: LMA#4 (iGel) + PNB at [facility] - Request General anesthesia: patient anxious/concerned regarding "hearing" things perioperatively- does not want spinal. Patient states that this was the reason her right TKA (02/2019) was done under general + PNB and would request the same for this upcoming surgery if possible* Chart Review Chart Review: Acceptable Risk for Surgery (pending surgeon-ordered PCP clearance ([facility])) and Patient seen in Pre Admission Testing Teaching & Discussion Pre-Anesthesia Teaching/Discussion Notes: Instructed NPO after midnight before surgery,except medications with 15 cc of water. Medication instructions provided according to the PAT guidelines. History Surgery Operation Date: 05/09/20 09:30 Proposed Procedures p Left Total Knee Arthroplasty - Hernan Ray MD Height/Weight Height: 5 ft Weight: 88.1 kg Allergies Allergy/AdvReac Type Severity Reaction Status Date / Time No Known Allergies Allergy Verified 04/04/20 12:19 Medications Home Medications Medication Instructions Recorded Confirmed Last Taken Calcium 600 + D(3) 1 cap PO QDD 01/10/19 04/04/20 02/15/19 20:00 cholecalciferol (vitamin D3) 1,000 unit PO QAM 01/10/19 04/04/20 02/15/19 07:00 [Vitamin D3] hydrochlorothiazide 25 mg PO QAM 01/10/19 04/04/20 02/15/19 07:00 potassium chloride 10 meq PO QAM 01/10/19 04/04/20 02/15/19 07:00 vitamin B complex 1 tab PO QAM 01/10/19 04/04/20 02/15/19 07:00 acetaminophen [Tylenol] 325 mg PO QID PRN 04/04/20 04/04/20 Unknown aspirin 81 mg PO HS 04/10/20 04/10/20 Unknown Past Medical History Medical History Hypertension Obesity Osteoarthritis Post traumatic stress disorder Exercise / Class Metabolic Activity II 4-5 Yardwork/Stairs/Walk up hill Past Family History Family History Grandfather (Paternal) No problems noted. Grandmother (Maternal) Family history of diabetes mellitus Other No family history of adverse response to anesthesia Past Surgical History Surgical History History of carpal tunnel surgery of right wrist History of colonoscopy History of total right knee replacement Right TKA: 02/16/19: LMA#4 (iGel) + PNB at [facility] Hx of shoulder surgery RIGHT Hx of tonsillectomy Hx of total hysterectomy Past Anesthesia History No Hx of Anesthesia Complications and No Family Hx of Anesthesia Complications History of PONV No Hx of PONV and No Hx of Motion Sickness Social History Smoking Status: Never smoker Do You Dip or Chew Tobacco: No Hx Alcohol Use: Yes alcohol intake frequency: holidays/special occasions only Hx Substance Use: No substance use type: does not use Review of Systems Patient denies chest pain, shortness of breath, dyspnea on exertion, fever, chills, cough, wheezing, palpitations. Physical Exam Vital Signs VITALS BP 129/72 P 64 TEMP 97.9 SP02 97%RA RESP 16 PHYSICAL Full neck and c-spine range of motion. Full TMJ range of motion. TMD 3 finger breaths Mallampati Score 3 Dentition: intact, upper left side implant/post Lungs: clear throughout to auscultation Cardiac: regular rate and rhythm, no murmurs noted Spine: normal Carotid arteries: negative bruit Extremities: no edema Testing Laboratory Results 04/10/20 13:15 04/10/20 13:14 PT 10.3 Seconds (9.0-12.0) 04/10/20 13:15 INR 1.0 (0.9-1.1) 04/10/20 13:15 APTT 25.8 Seconds (21.0-31.0) 04/10/20 13:15 Hemoglobin A1c 5.5 % (4.5-5.6) 04/10/20 13:15 Urine Color Dark Yellow 04/10/20 13:15 Urine Appearance Clear (Clear) 04/10/20 13:15 Urine pH 6.0 (4.5-7.5) 04/10/20 13:15 Ur Specific Champion 1.021 (1.000-1.030) 04/10/20 13:15 Urine Protein Negative (Negative) 04/10/20 13:15 Urine Glucose (UA) Negative (Negative) 04/10/20 13:15 Urine Ketones Negative (Negative) 04/10/20 13:15 Urine Nitrite Negative (Negative) 04/10/20 13:15 Ur Leukocyte Esterase 2+ (Negative) H 04/10/20 13:15 Urine WBC (Auto) 10-30 /hpf (0-5) H 04/10/20 13:15 Urine RBC (Auto) 0-4 /hpf (0-4) 04/10/20 13:15 U Hyaline Cast (Auto) 1-5 /lpf (0-5) 04/10/20 13:15 U Epithel Cells (Auto) >30 /lpf (0-5) H 04/10/20 13:15 Urine Bacteria (Auto) Negative (Negative) 04/10/20 13:15 Blood Type O Positive 04/10/20 13:15 Antibody Screen NEGATIVE 04/10/20 13:15 Electrocardiogram Date: 04/10/20 Findings: + SB @ (57) Chest X-Ray Date: 04/10/20 FINDINGS: Lung volumes are normal. There is no pneumothorax or pleural effusion. There is no consolidation. Moderate cardiomegaly is unchanged. Right hilar prominence is likely due to the right pulmonary artery. There are old right rib fractures. IMPRESSION: No acute cardiopulmonary findings. Moderate cardiomegaly. Right hilar prominence, likely due to the right pulmonary artery which may be mildly dilated.
[2020-04-10 13:46] LABS: Basophils # (auto) 0.03 K/uL (0-0.2); Basophils % (auto) 0.5 %; Eosinophils # (auto) 0.15 K/uL (0-0.5); Eosinophils % (auto) 2.3 %; Hematocrit (blood only) 42.7 % (37-47); Hemoglobin 14.4 g/dL (12.0-16.0); Immature Granulocytes # (auto) 0.02 K/uL (0.00-0.02); Immature Granulocytes % (auto) 0.3 %; Lymphocytes # (auto) 1.98 K/uL (1.2-3.4); Lymphocytes % (auto) 29.9 %; Mean Corpuscular Hgb Conc 33.7 g/dL (32-36); Mean Corpuscular Volume 97.7 fL (80-100); Mean Platelet Volume 11.5 fL (7.4-10.4); Monocytes # (auto) 0.55 K/uL (0.11-0.59); Monocytes % (auto) 8.3 %; Neutrophils # (auto) 3.89 K/uL (1.4-6.5); Neutrophils % (auto) 58.7 %; Platelet Count 218 K/uL (130-400); RDW Coefficient of Variation 13.5 % (11.5-14.5); RDW Standard Deviation 48.2 fL (36.4-46.3); Red Blood Count 4.37 M/uL (4.2-5.4); White Blood Count 6.62 K/uL (4.8-10.8)
--- NOTE | 2020-04-10 13:54 | XRay Report ---
XR chest Pre-admission PA/Lat CLINICAL HISTORY: Preoperative evaluation. COMPARISON STUDY: Chest radiograph January 14, 2019. FINDINGS: Lung volumes are normal. There is no pneumothorax or pleural effusion. There is no consolid ation. Moderate cardiomegaly is unchanged. Right hilar prominence is likely due to the right pulmonar y artery. There are old right rib fractures. IMPRESSION: 1. No acute cardiopulmonary findings. 2. Moderate cardiomegaly. 3. Right hilar prominence, likely due to the right pulmonary artery which may be mildly dilated. ACT 112: Negative or not required by law. Electronically signed by: Josiah Rodriguez M.D. 04/10/2020 1:52 PM
[2020-04-10 13:57] LABS: Albumin Level 3.4 gm/dl (3.4-5.0); BUN Creatinine Ratio 22.5 (10-20); Calcium 9.2 mg/dl (8.5-10.1); Creatinine Clr Calc Pharmacy 65.4 ml/min; Est GFR (African American) 87.9; Est GFR (Non-African American) 75.8; Potassium 3.5 mmol/L (3.5-5.1)
[2020-04-10 14:05] LABS: Partial Thromboplastin Ratio 0.9; Partial Thromboplastin Time 25.8 Seconds (21.0-31.0); Prothrombin Time 10.3 Seconds (9.0-12.0)
[2020-04-10 14:18] LABS: Appearance Urine Clear (Clear); Bacteria Urine Automated Negative (Negative); Bilirubin Urine Negative (Negative); Blood Urine Negative (Negative); Color Urine Dark Yellow; Epithelial Cell Urine Auto >30 /lpf (0-5); Glucose Urine UA Negative (Negative); Ketones Urine Negative (Negative); Leukocyte Esterase Urine 2+ (Negative); Nitrite Urine Negative (Negative); Protein Urine Negative (Negative); RBC Urine Automated 0-4 /hpf (0-4); Specific Gravity Urine 1.021 (1.000-1.030); Urobilinogen Urine Negative (Negative)
[2020-04-10 14:21] LABS: Estimated Average Glucose 111 mg/dl; Hemoglobin A1C 5.5 % (4.5-5.6)
--- NOTE | 2020-04-10 17:33 | Electrocardiogram Report ---
Test Reason : Blood Pressure : / mmHG Vent. Rate : 057 BPM Atrial Rate : 057 BPM P-R Int : 136 ms QRS Dur : 098 ms QT Int : 450 ms P-R-T Axes : -12 007 007 degrees QTc Int : 438 ms Sinus bradycardia Abnormal ECG When compared with ECG of 14-JAN-2019 11:43, No significant change was found Confirmed by Ez Loyola ([id number]) on 04/10/2020 5:33:29 PM Referred By: Hernan Ray Confirmed By:Lucio Loyola
--- NOTE | 2020-05-08 17:55 | History and Physical Report ---
DATE OF ADMISSION: 05/09/2020 CHIEF COMPLAINT: Chronic left knee pain. HISTORY OF PRESENT ILLNESS: This is a 70-year-old female patient of Dr. Ray'sehri complaining of chronic left knee pain, longstanding, now progressively getting worse. The patient has failed conservative treatment including home exercise program and the use of a brace. The patient has increased pain with weightbearing activities and her pain does interfere with her activities of daily living. The patient has been diagnosed with end-stage osteoarthritis per clinical and radiographic exams. The patient wished to proceed with an elective left total knee arthroplasty. PAST MEDICAL HISTORY: Hypertension, hypercholesterolemia, anxiety, osteoarthritis, neck problems, and obesity. SOCIAL HISTORY: Nonsmoker and nondrinker. PAST SURGICAL HISTORY: Knee surgery and shoulder surgery. FAMILY HISTORY: Noncontributory. REVIEW OF SYSTEMS: Chronic left knee pain, otherwise denies any shortness of breath, chest pain, nausea, vomiting or any other joint complaints. MEDICATIONS: 1. Calcium 600 plus D daily. 2. Hydrochlorothiazide 25 mg daily. 3. Potassium chloride extended release 10 mEq 2 capsules daily. 4. Vitamin D3 1000 units daily. 5. Aspirin 81 mg daily. 6. Multivitamins daily. ALLERGIES: No known drug allergies. PHYSICAL EXAMINATION: GENERAL: A well-developed, well-nourished 70-year-old female in no acute distress. She is alert and oriented x3 and pleasant. HEENT: Normocephalic, atraumatic. Extraocular motions are intact. Pupils are equal and reactive to light. HEART: Regular rate and rhythm, no murmurs. LUNGS: Clear. ABDOMEN: Soft, nontender, bowel sounds present. EXTREMITIES: Left lower extremity: She has a neutral alignment with a positive mild effusion. Range of motion 0-130, crepitation with passive range of motion, medial joint line tenderness, 5/5 strength with pain. Neurologically and neurovascularly, she is intact in her left lower extremity. DIAGNOSES: Left knee end-stage osteoarthritis, hypertension, hypercholesterolemia, anxiety, osteoarthritis, obesity. PLAN: The patient was advised of her diagnosis. Indications, risks, benefits, postop course have all been reviewed. The patient wished to proceed with a left total knee arthroplasty. Necessary consent forms, preoperative testing and clearances will be obtained.
[~2020-05-09 06:55] MED LIST: ACETAMINOPHEN 500 MG TAB PO SCH; BUPIVACAINE 0.5 % 5 MG/1 ML PF 10ML VIAL ONE; CeleBREX 200 MG CAP PO SCH; EPINEPHrine INJ 1 MG/ML AMP ONE; FAMOTIDINE 20 MG TAB PO SCH; GABAPENTIN 300 MG CAP PO SCH; LR 500ML BOLUS, THEN 15ML/HR IV SCH; METOCLOPRAMIDE HCL 10 MG TABLET PO SCH; MIDAZOLAM HCL 1 MG/ML 2ML VIAL ONE; ROPIVACAINE 0.5% 5 MG/ML 30 ML VIAL ONE; ROPIVACAINE 0.5% HCL/PF 150 MG, BUPIVACAINE 0.5% MPF 30 ML, EPINEPHrine 30MG/30ML (OR U... INSTIL SCH; TRANEXAMIC ACID 1,000 MG **IV Intra-op IV SCH; TRANEXAMIC ACID 1,000 MG **IV Pre-op IV SCH; ceFAZolin 2000MG 2,000 MG/15 ML SYR IV SCH; dexAMETHasone 4 MG TAB PO SCH; fentaNYL citrate 100 MCG/2 ML VIAL ONE
--- NOTE | 2020-05-09 09:22 | History & Physical Bridge Note ---
Date of Service May 09, 2020 History & Physical Bridge Note I have examined the patient, reviewed the History & Physical and in the interval since the performance of the History & Physical I have noted the following changes of clinical significance: no changes noted
[2020-05-09] MEDS ORDERED: BACITRACIN INJ 50,000 UNIT VIAL ONE (09:30)
[2020-05-09] MEDS ORDERED: ORTHO JOINT ANESTHETIC ONE (09:30)
[2020-05-09] MEDS ORDERED: PROMETHAZINE HCL 12.5 MG in SODIUM CHLORIDE 0.9% 50 ML IV PRN (09:52)
[2020-05-09] MEDS ORDERED: NALOXONE HCL 0.4 MG/1 ML VIAL/CARP IV PRN ×2 (09:52→13:12)
[2020-05-09] MEDS ORDERED: LABETALOL HCL IV 5 MG/ML 20ML IV PRN (09:52)
[2020-05-09] MEDS ORDERED: ONDANSETRON INJ 2 MG/ML 2 ML VIAL IV PRN ×2 (09:52→13:12)
[2020-05-09] MEDS ORDERED: FLUMAZENIL 0.1 MG/1 ML 10 ML VIAL IV PRN (09:52)
[2020-05-09] MEDS ORDERED: ePHEDrine sulfate 50 MG/ML AMP IV PRN (09:52)
[2020-05-09] MEDS ORDERED: ATROPINE SULFATE 0.1 MG/ML 10ML SYR IV PRN (09:52)
[2020-05-09] MEDS ORDERED: fentaNYL citrate 100 MCG/2 ML VIAL IV PRN (09:52)
[2020-05-09] MEDS ORDERED: HYDROmorphone INJ 1 MG/ML SYRINGE IV PRN (09:52)
[2020-05-09] MEDS ORDERED: PROPOFOL IV EMULSION 10 MG/ML 20 ML VIAL IV ONE (10:04)
[2020-05-09] MEDS ORDERED: LIDOCAINE HCL 2% 2 ML VIAL/AMP(20MG/ML) INFIL ONE (10:04)
[2020-05-09] MEDS ORDERED: ONDANSETRON INJ 2 MG/ML 2 ML VIAL ONE (10:05)
[2020-05-09] MEDS ORDERED: HYDROmorphone INJ 2 MG/ML SYR/VIAL ONE (10:05)
[2020-05-09] MEDS ORDERED: fentaNYL citrate 100 MCG/2 ML VIAL ONE (10:08)
[2020-05-09] MEDS ORDERED: DEXAMETHASONE SOD INJ 4 MG/ML VIAL ONE (10:08)
[2020-05-09] MEDS ORDERED: KETOROLAC 30 MG/ML VIAL ONE (11:43)
--- NOTE | 2020-05-09 12:10 | Operative Report ---
Post Operative Report Pre & Post Diagnosis Operation Date: 05/09/20 09:15 Pre-Op Diagnosis: Osteoarthritis, Left Knee, obesity BMI 38.3 Post-Op Diagnosis: Osteoarthritis, Left Knee, obesity BMI 38.3 I identified the patient and participated in the time-out.: Yes Procedure Operation Date: 05/09/20 09:15 Actual Procedures p Left Total Knee Arthroplasty(Left), lateral release, superficial wound VAC- Hernan Ray MD Surgeon Hernan Ray MD Front Services Agent AZUCENA Salinas Estimated Blood Loss 5 Findings Consistent with Post-Op Diagnosis Specimens Bone cuts Drains 2 Hemovac Anesthesia Type General Regional Complications none Disposition Accompanied Patient To Recovery: No Disposition: Recovery Room Indications 70-year female with end-stage osteoarthritis left knee [id number] with varus knee. Tricompartmental DJD. Status post right knee replacement Description of Procedure The patient was taken to the operating room and anesthetized under general regional block. Patient was placed supine on the the operating table. A pneumatic tourniquet was placed about the obese left upper thigh. The knee exam demonstrated some mild ligamentous laxity good range of motion instability consistent with chronic ACL tear. The involved leg was elevated exsanguinated with Esmarch bandage and the pneumatic tourniquet was raised to 350 millimeters mercury. A longitudinal incision was made across the anterior knee. Skin flaps were elevated. An incision was made into the medial retinaculum and extended up into the mid third of the quadriceps tendon and extended down to the tibial tubercle. Intra-articular findings demonstrated chronic ACL tear [id number] medial and lateral compartments and grade III chondromalacia patellofemoral joint.. The knee was exposed by excising posterior cruciate ligament and menisci. The infrapatellar fat pad was resected. The fat pad over the anterior femur at the upper aspect of the articular surface was resected for placement of the component in that area. A subperiosteal peel lateral release was performed around the patella. The [employer]ney 2.0 total knee arthroplasty system was utilized for the procedure. The custom femoral cutting guide was pinned in position. The distal femoral cut was made. The size 4, 5 in 1 cutting block was placed. The anterior posterior and chamfer cuts were made. The knee was extended and a free hand cut technique was performed to the patella. The patella with was measured and the width was reproduced using a 32 symmetrical patella component. 3 drill holes are made for the patella component pegs. The tibia was then subluxed. The custom tibial cutting block was pinned in position and the proximal tibial cut was made with the oscillating saw. The size 2 tibial trial was externally rotated in line with the tibial tubercle and pinned in position. The punch for the stem was used. The femoral trial was inserted and centered the notch cutting devices were used and the collet was placed. Tibial trials were used for the insert. The size 15 trial gave balanced ligaments through full range of motion. Patella tracking was assessed with range of motion. The patella tracked laterally with some liftoff so a lateral release was performed extrasynovial leaving the synovium intact. The patella tracks centrally afterwards.. The trials were removed. The Orthomix anesthetic cocktail was injected per protocol. The cut bone surfaces and soft tissue were copiously irrigated with antibiotic solution with bacitracin. The final components were cemented with Simplex cement. The final components were [employer] journey posterior stabilized size 4 left femur. Left 2 tibial baseplate. Size 15 high flex tibial polyethylene posterior stabilized insert, 32 symmetrical patella. After the cement cured the Betadine soak was used per protocol. the knee was then copiously irrigated with pulsatile lavage antibiotic solution with bacitracin. 2 drains were brought out laterally connected to Hemovac. The quadriceps tendon and medial retinaculum were closed with interrupted [id number] #1 Vicryl sutures. The knee was taken through full range of motion and repair was secure. The subcutaneous tissues were closed with 2-0 Vicryl sutures. The skin was closed with abi. A Bee superficial wound VAC was applied. The tourniquet was let down and the patient had good capillary refill to the extremity. The patient tolerated the procedure well. My physician assurance assistant AZUCENA Salinas assisted in the procedure including prepping draping leg positioning soft tissue retraction instrument management and assisted in the closure ,dressings application and will participate in postoperative care the patient. I attest to the content of the Intraoperative Record and any orders documented therein. Any exceptions are noted below.
--- NOTE | 2020-05-09 12:52 | Anesthesiology Progress Note ---
Date of Service May 09, 2020 Anesthesia Post Procedure Vital Signs Vital Signs: Temp Pulse Pulse Resp BP BP Pulse Ox 05/09/20 12:50 91 H 16 134/88 95 05/09/20 12:40 93 H 16 140/75 95 05/09/20 12:30 92 H 16 129/82 94 05/09/20 12:20 91 H 16 100/79 92 05/09/20 12:14 37.1 C 98 H 16 95/72 L 92 05/09/20 08:08 65 18 162/70 H 97 05/09/20 07:30 36.6 C 71 20 135/95 96 Transfer of Care Handoff Completed per policy Notes Mental Status: alert / awake / arousable Patient Amnestic to Procedure: Yes Nausea / Vomiting: adequately controlled Pain: adequately controlled Airway Patency, RR, SpO2: stable & adequate BP & HR: stable & adequate Hydration State: stable & adequate Anesthetic Complications: no major complications apparent
--- NOTE | 2020-05-09 13:03 | XRay Report ---
LEFT KNEE 2 VIEWS History: Left total knee arthroplasty. Degenerative arthritis. Postop. FINDINGS: The patient is status post a left total knee arthroplasty. The hardware is intact. No fract ure or dislocation. Skin abi and surgical drains are in place. IMPRESSION: Left total knee arthroplasty. No evidence for hardware complication. ACT 112: Negative or not required by law. Electronically signed by: Elian Odell M.D. 05/09/2020 1:02 PM
[2020-05-09] MEDS ORDERED: HYDROmorphone INJ 0.5 MG/0.5 ML SYR IV PRN (13:12)
[2020-05-09] MEDS ORDERED: diphenhydrAMINE Capsule 25 MG CAP PO PRN (13:12)
[2020-05-09] MEDS ORDERED: bisacodyL 10 MG SUPP PR PRN (13:12)
[2020-05-09] MEDS ORDERED: MAGNESIUM HYDROXIDE SUSP 30 ML UDC PO PRN (13:12)
[2020-05-09] MEDS ORDERED: SODIUM CHLORIDE 0.9% 1000ML 1,000 ML IV SCH (13:15)
[2020-05-09] MEDS: ACETAMINOPHEN 500 MG TAB PO SCH ×2 (13:42→21:22)
--- NOTE | 2020-05-09 13:57 | Consultation ---
Date of Consultation May 09, 2020 Assessment & Plan (1) S/P total knee arthroplasty: Status post left total knee arthroplasty, POD #[address] Ray EBL: 5 mL; Hemovac in place Tolerated procedure well, postop drowsiness Wound/pain management per orthopedic Activity and therapy as directed by Ortho Encourage incentive spirometry and wean O2 as able Monitor H&H, preop hemoglobin 14 (2) Hypoxia: Postoperatively patient with mild hypoxia requiring 3 L of O2 Likely in setting of postoperative sedation and poor inspiratory effort Patient did have adventitious left lung breath sounds Obtain chest x-ray, encourage incentive spirometry and wean as able (3) Hypertension: Blood pressure currently 105/71 Hold HCTZ, monitor blood pressure inform status in a.m. to reassess Resume when able (4) Obesity: BMI 38.3 Encourage lifestyle and diet modification (5) DVT prophylaxis: ASA twice daily per Ortho Disposition: Per primary Follow: PCP RAJ Elkins upon discharge Patient was seen and examined in collaboration with Dr. Oshea, please see addendum Supervising Physician Co-Signing Physician Notes Pt was seen and examined. Agreed with Ligia GARCIA exam, assessment and plan. 70 yr old Female with PMH HTN, HLD, obesity, s/p left TKA performed today by Dr. Ray after failed conservative management. Postoperatively, the patient is doing well. No postop complications. Denies any chest pain, palpitation, dizzine ss and SOB. He said that pain is well controlled. Continue incentive spirometry. Pain control. PT/OT eval as per ortho. Fall precaution. Monitor H/H. Continue monitor closely. MD Dayo History of Present Illness Requesting Physician: Dr. Ray. Reason for Consultation: Post op med management Attending Physician: Hernan Ray MD History of Present Illness This is a 70 yr old F who has a significant PMH HTN, HLD, obesity who was seen postoperatively for medical management status post left TKA. and nurse are at bedside. Currently she is very drowsy from procedure. She denies any pain, fever, chills, sweats, lightheadedness, dizziness, chest pain, shortness of breath, cough, nausea, vomiting, abdominal pain. She has lunch in front of her but, "I do not feel like eating. "She is currently on 3 L of O2. Nursing states she arrived on medical floor on 2 L. She was slightly desaturating secondary to poor respiratory effort secondary to drowsiness and therefore O2 was increased. Of significance she did have right TKA February 2019. She tolerated that procedure well. In regards to her history of hypertension it is managed with oral hydrochlorothiazide and potassium supplement. She denies take any medications prior to her procedure today. Allergies Allergy/AdvReac Type Severity Reaction Status Date / Time No Known Allergies Allergy Verified 05/09/20 07:22 Home Medications Home Medications Medication Instructions Recorded Confirmed Type Calcium 600 + D(3) 1 cap PO QDD 01/10/19 05/09/20 History cholecalciferol (vitamin D3) 1,000 unit PO QAM 01/10/19 05/09/20 History [Vitamin D3] hydrochlorothiazide 25 mg PO QAM 01/10/19 05/09/20 History potassium chloride 10 meq PO QAM 01/10/19 05/09/20 History vitamin B complex 1 tab PO QAM 01/10/19 05/09/20 History acetaminophen [Tylenol] 325 mg PO QID PRN 04/04/20 05/09/20 History aspirin 81 mg PO HS 04/10/20 05/09/20 History Patient History Medical History (Updated 05/09/20 @ 14:01 by Ligia Chinchilla PA-C) Hypertension Obesity Osteoarthritis Post traumatic stress disorder Surgical History History of carpal tunnel surgery of right wrist History of colonoscopy History of total right knee replacement Right TKA: 02/16/19: LMA#4 (iGel) + PNB at [facility] Hx of shoulder surgery RIGHT Hx of tonsillectomy Hx of total hysterectomy Family History Grandfather (Paternal) No problems noted. Grandmother (Maternal) Family history of diabetes mellitus Other No family history of adverse response to anesthesia Social History Smoking Status: Never smoker Second Hand Exposure: No; Do You Dip or Chew Tobacco: No; Hx Alcohol Use: Yes Hx Substance Use: No Preferred Language: Armenian Communication Ability: Effective Kettle Operator Required: No Beliefs That Will Affect Care: None marital status: Current Living Situation: Spouse Feels Safe at Home: Yes Safety Concerns: Feels Safe At This Time Assistive Devices: Glasses and Walker Review of Systems Review of Systems: All systems reviewed & are unremarkable except as noted in HPI & below Physical Exam Physical Exam: Constitutional: WD/WN,drowsy, F vitals as above, NAD, sitting up in bed, pleasant, conversing easily Head: Normocephalic, Atraumatic Eyes: PERRL, conjunctivae normal, anicteric sclerae ENMT: external ear and nose normal, oropharynx normal Neck: trachea midline, no thyromegaly normal visual inspection Respiratory: on 3L of O2, decreased respiratory effort, lungs clear to auscultation, L mid and lower lobe rhonchi, does not clear with coughing, no rales or wheeze. No accessory muscle use Cardiovascular: RRR, no murmur, no edema Vessels: no JVD or carotid bruit Chest: normal inspection of chest Abdomen: normal bowel sounds, soft, nontender, no hepatosplenomegaly Musculoskeletal: no cyanosis or clubbing, AROM to all ext, L TKA Dressing CDI, hemovac in place skin: no rashes, warm and dry normal turgor Neurologic: PERRL, EOMI, accommodation nl, no face palsy, no dysarthria CN's II-XI intact bilaterally and moves all extremities Psychiatric: A+Ox3, euthymic affect Lymphatic: no cervical or axillary lymphadenopathy : deferred Results & Data ([facility]) Vital Signs (Past 12 Hours) Vital Signs Temp Pulse Pulse Pulse Resp BP BP 05/09/20 13:44 16 105/71 05/09/20 13:10 36.7 C 95 H 17 146/76 H 05/09/20 12:50 36.9 C 91 H 16 134/88 05/09/20 12:40 93 H 16 140/75 05/09/20 12:30 92 H 16 129/82 05/09/20 12:20 91 H 16 100/79 05/09/20 12:14 37.1 C 98 H 16 95/72 L 05/09/20 08:08 65 18 162/70 H 05/09/20 07:30 36.6 C 71 20 135/95 Pulse Ox 05/09/20 13:44 94 05/09/20 13:10 94 05/09/20 12:50 95 05/09/20 12:40 95 05/09/20 12:30 94 05/09/20 12:20 92 05/09/20 12:14 92 05/09/20 08:08 97 05/09/20 07:30 96 Laboratory Results Preop lab work 04/10/2020 H&H 14.4 and 42.7, WBC 6.62, platelet 218, sodium 141, K3.5 BUN 18, creatinine 0.79 Diagnostic Findings Knee Xray: Left total knee arthroplasty. No evidence for hardware complication. CXR 04/10/20: IMPRESSION: 1. No acute cardiopulmonary findings. 2. Moderate cardiomegaly. 3. Right hilar prominence, likely due to the right pulmonary artery which may be mildly dilated. Medications Administered Acetaminophen (Acetaminophen 500 Mg Tab) 1,000 mg PO Q8 SANDRA Stop: 06/08/20 13:59 Last Admin: 05/09/20 13:42 Dose: Not Given Documented by: [id number] Sodium Chloride (Nss 1000ml) 1,000 mls @ 100 mls/hr IV .Q10H SANDRA Stop: 06/08/20 13:14 Last Admin: 05/09/20 13:34 Dose: 100 mls/hr Documented by: [id number] Discontinued Medications Acetaminophen (Acetaminophen 500 Mg Tab) 1,000 mg PO PREOP SANDRA Stop: 05/09/20 18:00 Last Admin: 05/09/20 07:43 Dose: 1,000 mg Documented by: [id number] Bacitracin (Bacitracin Inj 50,000 Unit Vial) Confirm Administered Dose 50,000 units .ROUTE .STK-MED ONE Stop: 05/09/20 09:31 Last Admin: 05/09/20 11:34 Dose: 50,000 units Documented by: [id number] Celecoxib (Celebrex 200 Mg Cap) 200 mg PO PREOP SANDRA Stop: 05/09/20 18:00 Last Admin: 05/09/20 07:44 Dose: 200 mg Documented by: [id number] Dexamethasone (Dexamethasone 4 Mg Tab) 8 mg PO PREOP SANDRA Stop: 05/09/20 18:00 Last Admin: 05/09/20 07:43 Dose: 8 mg Documented by: [id number] Famotidine (Famotidine 20 Mg Tab) 20 mg PO PREOP SANDRA Stop: 05/09/20 18:00 Last Admin: 05/09/20 07:44 Dose: 20 mg Documented by: [id number] Gabapentin (Gabapentin 300 Mg Cap) 300 mg PO PREOP SANDRA Stop: 05/09/20 18:00 Last Admin: 05/09/20 07:43 Dose: 300 mg Documented by: [id number] Lactated Ringer's (Lr) 1,000 mls @ 15 mls/hr IV .Q24H SANDRA Stop: 05/09/20 18:00 Last Infusion: 05/09/20 09:49 Dose: 0 mls/hr Documented by: [id number] Admin: 05/09/20 07:35 Dose: 15 mls/hr Documented by: [id number] Cefazolin Sodium (Ancef 2000mg) 2,000 mg in 15 mls @ 3.75 mls/min IV PREOP ASNDRA; Protocol Stop: 05/09/20 18:00 Last Admin: 05/09/20 09:49 Dose: 3.75 mls/min Documented by: [id number] Ropivacaine 150 mg/Bupivacaine HCl 30 ml/Epinephrine HCl 0.15 mg/Ketorolac Tromethamine 30 mg/Dexamethasone 4 mg/ Ketamine HCl 10 mg/ Clonidine HCl 100 mcg/ Sodium Chloride 93.35 mls @ 0 mls/hr INSTIL PREOP SANDRA Stop: 05/09/20 06:01 Last Admin: 05/09/20 11:24 Dose: Not Given Documented by: [id number] Tranexamic Acid (Tranexamic Acid / 0.7% Nacl) 1,000 mg in 100 mls @ 600 mls/hr IV TODAY@0600 SANDRA Stop: 05/09/20 18:00 Last Infusion: 05/09/20 09:51 Dose: 0 mls/hr Documented by: [id number] Admin: 05/09/20 09:40 Dose: 600 mls/hr Documented by: [id number] Tranexamic Acid (Tranexamic Acid / 0.7% Nacl) 1,000 mg in 100 mls @ 600 mls/hr IV TODAY@0600 [facility] Stop: 05/09/20 18:00 Last Admin: 05/09/20 11:37 Dose: 600 mls/hr Documented by: [id number] Metoclopramide HCl (Metoclopramide Hcl 10 Mg Tablet) 10 mg PO PREOP SANDRA Stop: 05/09/20 18:00 Last Admin: 05/09/20 07:44 Dose: 10 mg Documented by: [id number] Miscellaneous (Ortho Joint Anesthetic ) Confirm Administered Dose 1 ea .ROUTE .[facility] ONE Stop: 05/09/20 09:31 Last Admin: 05/09/20 11:24 Dose: 1 ea Documented by: [id number] ECG Rate (beats per minute): 57 Rhythm: sinus bradycardia
--- NOTE | 2020-05-09 14:17 | XRay Report ---
XR chest 1V portable HISTORY: 70 years-old Female rhonchi patient presents with acute coarsened breath sounds COMPARISON: Chest radiograph 04/10/2020 TECHNIQUE: Portable AP view of the chest FINDINGS: Cardiac silhouette is mildly enlarged. Unchanged mild right hemidiaphragmatic elevation. There is no pneumothorax, pleural effusion, airspace consolidation or overt pulmonary edema. Multiple remote righ t-sided rib fractures redemonstrated. Degenerative changes of the shoulders and spine. IMPRESSION: Cardiomegaly without acute process. ACT 112: Negative or not required by law. The above report was generated using voice recognition software. It may contain grammatical, syntax o r spelling errors. Electronically signed by: Ian Livingston M.D. 05/09/2020 2:15 PM
[2020-05-09] MEDS: CALCIUM 600MG + VIT D 400 IU TAB PO SCH (17:54)
[2020-05-09] MEDS: ceFAZolin 2000MG 2,000 MG/15 ML SYR IV SCH (17:55)
[2020-05-09] MEDS: SENNA 8.6 MG TAB PO SCH (21:22)
[2020-05-09] MEDS: ASPIRIN 81 MG ECTAB PO SCH (21:22)
[2020-05-09] MEDS: CeleBREX 200 MG CAP PO SCH (21:22)
[2020-05-09] MEDS: DOCUSATE SODIUM 100 MG CAP PO SCH (21:22)
[2020-05-10] MEDS: ceFAZolin 2000MG 2,000 MG/15 ML SYR IV SCH (02:33)
[2020-05-10] MEDS: ACETAMINOPHEN 500 MG TAB PO SCH ×3 (05:43→21:35)
[2020-05-10 06:09] LABS: Hemoglobin 12.2 g/dL (12.0-16.0); Mean Corpuscular Hemoglobin 32.8 pg (25-34); Mean Corpuscular Volume 99.5 fL (80-100); Mean Platelet Volume 10.7 fL (7.4-10.4); Platelet Count 216 K/uL (130-400); RDW Coefficient of Variation 13.7 % (11.5-14.5); RDW Standard Deviation 49.7 fL (36.4-46.3); Red Blood Count 3.72 M/uL (4.2-5.4); White Blood Count 10.02 K/uL (4.8-10.8)
[2020-05-10 06:37] LABS: BUN Creatinine Ratio 31.1 (10-20); Calcium 8.4 mg/dl (8.5-10.1); Creatinine Clr Calc Pharmacy 62.5 ml/min; Est GFR (African American) 83.4; Potassium 3.4 mmol/L (3.5-5.1)
[2020-05-10] MEDS: MULTIVITAMIN TAB PO SCH (07:39)
[2020-05-10] MEDS: ASPIRIN 81 MG ECTAB PO SCH ×2 (07:39→21:34)
[2020-05-10] MEDS: DOCUSATE SODIUM 100 MG CAP PO SCH ×2 (07:40→21:34)
[2020-05-10] MEDS: CHOLECALCIFEROL 1,000 UNITS 25 MCG TAB PO SCH (07:40)
[2020-05-10] MEDS: POTASSIUM CHLORIDE 10 MEQ TABCR PO SCH (07:40)
[2020-05-10] MEDS: CeleBREX 200 MG CAP PO SCH ×2 (07:40→21:34)
[2020-05-10] MEDS: VITAMIN B COMPLEX TAB PO SCH (07:40)
--- NOTE | 2020-05-10 08:16 | Orthopedic Progress Note ---
Date of Service May 10, 2020 Assessment & Plan (1) S/P total knee arthroplasty: POD #1, Left TKA PT/ OT DVT proph- ASA D/C planning- Home w HH As per medicine. Will monitor O2 sats today and if stable D/C tomorrow. Admission and Anticipated Discharge Date Admission Date: May 09, 2020 Subjective POD #1, Doing well this AM. Denies SOB, CP, N/V, diziness. Pain controlled well. Had post op hypoxemia likely due to pain meds/ anesthesia O2 95% on RA now. Physical Exam Physical Exam: Left knee dressings c/d/i, no drainage. Toes/ ankle mobile. NO calf tenderness. A&Ox3 Results & Data ([facility]) Vital Signs (Past 12 Hours) Vital Signs Temp Pulse Resp BP Pulse Ox 05/10/20 08:06 36.5 C 59 L 16 117/74 95 05/10/20 02:46 36.7 C 64 16 127/78 98 05/09/20 23:40 36.7 C 67 16 142/77 H 92
[2020-05-10] MEDS ORDERED: hydroCHLOROthiazide 25 MG TAB PO SCH (09:00)
[2020-05-10] MEDS: oxyCODONE HCL IR 5 MG TAB (IMMEDIATE RELEASE) PO PRN ×3 (09:53→21:33)
--- NOTE | 2020-05-10 14:58 | Hospitalist Progress Note ---
Date of Service May 10, 2020 Assessment & Plan (1) S/P total knee arthroplasty: s/p L TKA, POD#[address] Ray postop drowsiness and hypoxia has resolved overnight Pain is well controlled. Wound/pain management per orthopedic Activity and therapy as directed by Ortho Encourage incentive spirometry and wean O2 as able Monitor H&H, preop hemoglobin 14 (2) Hypoxia: resolved (3) Hypertension: continue HCTZ per home regimen. (4) Obesity: BMI 38.3 Encourage lifestyle and diet modification (5) DVT prophylaxis: ASA twice daily per Ortho Full Code Disposition: Per primary, likely dc to home in am. Del[facility] and Anticipated Discharge Date Admission Date: May 10, 2020 Subjective Patient is doing well postop. She reports she has been ambulating with minimal assistance and pain is well controlled. She is tolerating oral food without issue. She has been oxygenating on room air overnight and today. She denies any cough or otherwise no shortness of breath. Review of Systems Review of Systems: All systems reviewed & are unremarkable except as noted in Subjective Physical Exam Physical Exam: CONSTITUTIONAL: WNWD, vitals as above, generally well- appearing EYES: normal conjunctivae, no scleral icterus ENT: external ear and nose normal, MMM RESPIRATORY: clear to auscultation bilaterally, no crackles, rales or wheezes, normal respiratory effort CARDIOVASCULAR: regular rate and rhythm, S1 and 2 heard without murmurs, gallops or rubs, no JVD, no peripheral edema GASTROINTESTINAL: soft, nontender, nondistended, no guarding. MUSCULOSKELETAL: LLE with ice and knee wrapped with MAGED. Drain in place. Head is normocephalic and atraumatic SKIN: warm and dry NEUROLOGIC: CN 2-12 grossly intact, normal cognition, normal speech, no gross focal deficits. PSYCHIATRIC: alert cooperative and oriented to person, place and time. Results & Data Results [facility]) Vital Signs (Past 12 Hours) Vital Signs Temp Pulse Resp BP Pulse Ox 05/10/20 11:21 36.5 C 62 16 128/79 96 05/10/20 08:06 36.5 C 59 L 16 117/74 95 Laboratory Results Short CBC 05/10/20 Range/Units 05:56 WBC 10.02 (4.8-10.8) K/uL Hgb 12.2 (12.0-16.0) g/dL Hct 37.0 (37-47) % Plt Count 216 (130-400) K/uL BMP 05/10/20 05:56 Sodium 141 Potassium 3.4 L Chloride 108 H Carbon Dioxide 28 BUN 26 H Creatinine 0.82 Glucose 113 H Calcium 8.4 L Medications Administered Current Inpatient Medications Acetaminophen (Acetaminophen 500 Mg Tab) 1,000 mg PO Q8 SANDRA Stop: 06/08/20 13:59 Last Admin: 05/10/20 14:11 Dose: 1,000 mg Documented by: Aspirin (Aspirin 81 Mg Ectab) 81 mg PO BID SANDRA Stop: 06/08/20 20:59 Last Admin: 05/10/20 07:39 Dose: 81 mg Documented by: Bisacodyl (Bisacodyl 10 Mg Supp) 10 mg [place] DAILY PRN PRN Reason: Constipation Stop: 06/08/20 13:11 Celecoxib (Celebrex 200 Mg Cap) 200 mg PO BID SANDRA Stop: 06/08/20 20:59 Last Admin: 05/10/20 07:40 Dose: 200 mg Documented by: Diphenhydramine HCl (Diphenhydramine Capsule 25 Mg Cap) 25 mg PO Q8H PRN PRN Reason: Itching Stop: 06/08/20 13:11 Docusate Sodium (Docusate Sodium 100 Mg Cap) 100 mg PO BID [facility] Stop: 06/08/20 20:59 Last Admin: 05/10/20 07:40 Dose: 100 mg Documented by: Hydrochlorothiazide (Hydrochlorothiazide 25 Mg Tab) 25 mg PO QAM [facility] Stop: 06/09/20 08:59 Last Admin: 05/10/20 07:41 Dose: 25 mg Documented by: Hydromorphone HCl (Hydromorphone Inj 0.5 Mg/0.5 Ml Syr) 0.5 mg IV Q4H PRN PRN Reason: Pain or Pre PT Stop: 05/23/20 13:11 Magnesium Hydroxide (Magnesium Hydroxide Susp 30 Ml Udc) 30 ml PO Q6H PRN PRN Reason: Constipation Stop: 06/08/20 13:11 Multivitamins (Multivitamin Tab) 1 tab PO QAM [facility] Stop: 06/09/20 08:59 Last Admin: 05/10/20 07:39 Dose: 1 tab Documented by: Multivitamins/Minerals (Calcium 600mg + Vit D 400 Iu Tab) 1 tab PO QDD [facility] Stop: 06/08/20 16:29 Last Admin: 05/09/20 17:54 Dose: Not Given Documented by: Naloxone HCl (Naloxone Hcl 0.4 Mg/1 Ml Vial/Carp) 0.1 mg IV Q5M PRN PRN Reason: Oversedation/Resp Depression Stop: 06/08/20 13:11 Ondansetron HCl (Ondansetron Inj 2 Mg/Ml 2 Ml Vial) 4 mg IV Q6H PRN PRN Reason: Nausea And Vomiting Stop: 06/08/20 13:11 Oxycodone HCl (Oxycodone Hcl Ir 5 Mg Tab (Immediate Release)) 5 - 10 mg PO Q4H PRN PRN Reason: Pain or Pre PT Stop: 05/23/20 13:11 Last Admin: 05/10/20 09:53 Dose: 5 mg Documented by: Potassium Chloride (Potassium Chloride 10 Meq Tabcr) 10 meq [facility] [place] Stop: 06/09/20 08:59 Last Admin: 05/10/20 07:40 Dose: 10 meq Documented by: Sennosides (Senna 8.6 Mg Tab) 17.[address] [facility] Stop: 06/08/20 20:59 Last Admin: 05/09/20 21:22 Dose: 17.2 mg Documented by: Vitamin B Complex (Vitamin B Complex Tab) 1 tab [facility] [place] Stop: 06/09/20 08:59 Last Admin: 05/10/20 07:40 Dose: 1 tab Documented by: Vitamin D (Cholecalciferol 1,000 Units 25 Mcg Tab) 1,000 units PO QAJD [facility] [place] Stop: 06/09/20 08:59 Last Admin: 05/10/20 07:40 Dose: 1,000 units Documented by:
[2020-05-10] MEDS: CALCIUM 600MG + VIT D 400 IU TAB PO SCH (17:33)
[2020-05-10] MEDS: SENNA 8.6 MG TAB PO SCH (21:34)
[2020-05-11] MEDS: oxyCODONE HCL IR 5 MG TAB (IMMEDIATE RELEASE) PO PRN (04:51)
[2020-05-11] MEDS: ACETAMINOPHEN 500 MG TAB PO SCH (05:51)
[2020-05-11 07:10] LABS: Hematocrit (blood only) 36.2 % (37-47); Hemoglobin 11.7 g/dL (12.0-16.0); Mean Corpuscular Hemoglobin 32.6 pg (25-34); Mean Corpuscular Hgb Conc 32.3 g/dL (32-36); Mean Corpuscular Volume 100.8 fL (80-100); Platelet Count 181 K/uL (130-400); RDW Coefficient of Variation 13.9 % (11.5-14.5); RDW Standard Deviation 51.9 fL (36.4-46.3); Red Blood Count 3.59 M/uL (4.2-5.4); White Blood Count 6.99 K/uL (4.8-10.8)
--- NOTE | 2020-05-11 07:26 | Orthopedic Progress Note ---
Date of Service May 11, 2020 Assessment & Plan (1) S/P total knee arthroplasty: POD #2, Left TKA PT/ OT DVT proph- ASA D/C planning- Home w HH today As per medicine. Hypoxia resolved. Admission and Anticipated Discharge Date Admission Date: May 10, 2020 Subjective POD #2, Doing well. Denies SOB, CP, N/V, dizziness. Pain controlled well. Did well in PT. Physical Exam Physical Exam: Left knee privena c/d/i, no drainage. Toes/ ankle mobile. No calf tenderness. A&Ox3 VSS Results & Data ([facility]) Vital Signs (Past 12 Hours) Vital Signs Temp Pulse Resp BP Pulse Ox 05/10/20 23:26 36.7 C 64 16 124/73 94
[2020-05-11 07:37] LABS: BUN Creatinine Ratio 26.9 (10-20); Creatinine Clr Calc Pharmacy 62.5 ml/min; Est GFR (African American) 83.4; Potassium 3.4 mmol/L (3.5-5.1)
[2020-05-11] MEDS: CHOLECALCIFEROL 1,000 UNITS 25 MCG TAB PO SCH (08:45)
[2020-05-11] MEDS: POTASSIUM CHLORIDE 10 MEQ TABCR PO SCH (08:45)
[2020-05-11] MEDS: VITAMIN B COMPLEX TAB PO SCH (08:45)
[2020-05-11] MEDS: DOCUSATE SODIUM 100 MG CAP PO SCH (08:45)
[2020-05-11] MEDS: CeleBREX 200 MG CAP PO SCH (08:45)
[2020-05-11] MEDS: MULTIVITAMIN TAB PO SCH (08:45)
[2020-05-11] MEDS: ASPIRIN 81 MG ECTAB PO SCH (08:45)
--- NOTE | 2020-05-22 08:22 | Discharge Summary (DS) ---
HISTORY OF PRESENT ILLNESS: This is a 70-year-old female patient of Dr. Ray'sheri complaining of chronic left knee pain, longstanding, progressively getting worse. The patient failed conservative treatment and elected to proceed with a left total knee arthroplasty. PAST MEDICAL HISTORY: Hypertension, hypercholesterolemia, anxiety, osteoarthritis, neck problems and obesity. POSTOPERATIVE COURSE: The patient underwent a left total knee arthroplasty on 04/08/2020. She did have some postoperative hypoxemia where she was given some oxygen in addition, room air. This was likely due to anesthesia and pain medications with a negative chest x-ray. Her hypoxemia did resolve postoperative day #1 early in the morning. Otherwise, the patient had an uneventful postoperative course. She was followed closely with medical consultation, DVT prophylaxis in the form of aspirin, physical therapy and pain control. PHYSICAL EXAMINATION: On discharge, left knee Prevena wound VAC was clean, dry and intact. Suction was holding well. She had no calf tenderness. Negative Homans sign. Toes and ankle were mobile. Neurologically and neurovascularly she is intact in her left lower extremity. The patient was alert and oriented x3. DIAGNOSES: Status post left total knee arthroplasty, limited postoperative hypoxemia resolved with a history of hypertension, hypercholesterolemia, anxiety, osteoarthritis, neck problems and obesity. PLAN: The patient was discharged home on postoperative day #2 with home health services. She will continue her preadmission medications with the addition of aspirin twice daily for DVT prophylaxis and pain medications as needed. She will follow up as scheduled as an outpatient.
== END 2020-05-11 12:06 | disposition home health service (06) | DRG 470 ==
LOC: 3E 06:55 → ASU 06:55